=== PATIENT | female | born 1970 | race African-American/Black ===

== ENCOUNTER 2017-08-19 21:25 | Inpatient (IN) | payer OTHER ==
[2017-08-19] MEDS ORDERED: IPRATROPIUM/ALBUTEROL 0.5-2.5 MG/3 ML AMPUL NEB ONE (21:46)
[2017-08-19 22:12] LABS: HEMATOCRIT 35.7 % (36.0-47.0); HEMOGLOBIN 11.2 g/dL (12.0-15.5); MEAN CORPUSCULAR HEMOGLOBIN 23.6 pg (27.0-33.4); MEAN CORPUSCULAR HGB CONC 31.2 g/dL (32.0-36.0); MEAN CORPUSCULAR VOLUME 76 fl (80-97); PLATELET COUNT 542 10^3/uL (150-450); RED BLOOD COUNT 4.72 10^6/uL (3.72-5.28); RED CELL DISTRIBUTION WIDTH 15.7 % (11.5-14.0); WHITE BLOOD COUNT 14.8 10^3/uL (4.0-10.5)
[2017-08-19] MEDS ORDERED: ALBUTEROL SULFATE 0.083% NEB 2.5 MG/3 ML AMPUL NEB ONE (22:15)
[2017-08-19] MEDS ORDERED: METHYLPREDNISOLONE INJ 125 MG/2 ML SDV IV ONE (22:16)
[2017-08-19] MEDS ORDERED: MAGNESIUM SULFATE/D5W 1 GM/100 ML RTUPB IV ONE (22:16)
--- NOTE | 2017-08-19 22:17 | ER Document Report ---
ED General - General Stated Complaint: RESPIRATORY DISTRESS Time Seen by Provider: 08/19/17 21:46 Mode of Arrival: Medic Information source: Patient, Relative - [facility] Patient complains to provider of: Shortness of breath Onset: Other - Is [place] Onset/Duration: Waxing and waning Quality of pain: No pain Associated symptoms: Productive cough, Hurts to breath, Shortness of breath Exacerbated by: Coughing Relieved by: Denies Similar symptoms previously: Yes Recently seen / treated by doctor: Yes - Was recently on a Z-Eyad. Notes: A 47-year-old -[place] female who presents emergency department via ambulance for shortness of breath. Patient took at least 8 duo nebs at home without improvement. She states she has a history of asthma she has not been hospitalized in years for this. She states she has been ill since July with a cough wheezing and shortness of breath. She states that she has been to the emergency department 3 times. She was last treated with a Z-Eyad approximately 1 week ago. She states that she took all but 1 or 2 pills. Patient is here visiting from [place]. She does not smoke. She has not been on prednisone in at least a year. Past Medical History - General Information source: Patient - Social History Smoking Status: Never Smoker Cigarette use (# per day): No Chew tobacco use (# tins/day): No Smoking Education Provided: No Frequency of alcohol use: Social Drug Abuse: None Lives with: Family Family History: Reviewed & Not Pertinent Patient has suicidal ideation: No Patient has homicidal ideation: No Pulmonary Medical History: Reports: Hx Asthma, Hx Bronchitis EENT Medical History: Reports: None Neurological Medical History: Reports: None Endocrine Medical History: Reports: None Renal/ Medical History: Reports: None Malignancy Medical History: Reports: None GI Medical History: Reports: None Musculoskeltal Medical History: Reports None Skin Medical History: Reports None Psychiatric Medical History: Reports: None Traumatic Medical History: Reports: None Infectious Medical History: Reports: None Surgical Hx: Negative Review of Systems - Review of Systems EENT: No symptoms reported Cardiovascular: No symptoms reported Respiratory: Cough, Hurts to breathe, Short of breath, Wheezing Gastrointestinal: No symptoms reported Genitourinary: No symptoms reported Female Genitourinary: No symptoms reported Musculoskeletal: No symptoms reported Skin: No symptoms reported Hematologic/Lymphatic: No symptoms reported Neurological/Psychological: No symptoms reported Physical Exam - Vital signs Vitals: Resp Pulse Ox 37 H 100 08/19/17 21:25 08/19/17 21:25 96% Cpap (50% O2). HR111 BP 140/90 Interpretation: Normal - Notes Notes: PHYSICAL EXAMINATION: GENERAL: Respiratory distress on BiPAP. Cachectic ill-appearing female HEAD: Atraumatic, normocephalic. EYES: Pupils equal round and reactive to light, extraocular movements intact, conjunctiva are normal. ENT: Nares patent, oropharynx clear without exudates. Moist mucous membranes. NECK: Normal range of motion, supple without lymphadenopathy LUNGS: Rhonchi bilaterally. Insert during expiratory wheezing bilaterally HEART: Regular rate and rhythm without murmurs ABDOMEN: Soft, nontender, nondistended abdomen. No guarding, no rebound. No masses appreciated. Female : deferred Musculoskeletal: Normal range of motion, no pitting or edema. No cyanosis. NEUROLOGICAL: Cranial nerves grossly intact. Normal speech, normal gait. Normal sensory, motor exams PSYCH: Normal mood, normal affect. SKIN: Warm, Dry, normal turgor, no rashes or lesions noted. Course - Re-evaluation Re-evalutation: 08/20/17 00:46 She remained stable throughout her stay in the emergency department. She did tolerate the BiPAP. I did discuss the patient with Dr. Roe who admitted her. Did discuss antibiotics and both felt at this point that they would not be needed. It seems that the patient has a pearly asthmatic exacerbation there are no signs of infection at this time. - Vital Signs Vital signs: Temp Pulse Resp BP Pulse Ox 26 H 125/85 99 08/19/17 23:00 08/19/17 21:34 08/19/17 23:00 - Laboratory Result Diagrams: 08/19/17 21:45 08/19/17 21:45 Laboratory results interpreted by me: 08/19/17 08/19/17 21:45 21:45 WBC 14.8 H Hgb 11.2 L Hct 35.7 L MCV 76 L MCH 23.6 L MCHC 31.2 L RDW 15.7 H Plt Count 542 H Eosinophils % (Manual) 13 H Absolute Eos (Manual) 1.9 H Potassium 3.5 L Carbon Dioxide 21 L Glucose 126 H Discharge - Discharge Clinical Impression: Asthma exacerbation, Anemia Condition: Good Disposition: ADMITTED INPATIENT Admitting Provider: Hospitalist - Dr. Roe Unit Admitted: Telemetry
[2017-08-19 22:20] LABS: ALANINE AMINOTRANSFERASE 27 U/L (9-52); ALBUMIN 4.3 g/dL (3.5-5.0); ALKALINE PHOSPHATASE 70 U/L (38-126); ANION GAP 12 (5-19); ASPARTATE AMINO TRANSFERASE 27 U/L (14-36); BILIRUBIN,DIRECT 0.2 mg/dL (0.0-0.4); BILIRUBIN,TOTAL 0.3 mg/dL (0.2-1.3); BLOOD UREA NITROGEN 8 mg/dL (7-20); CALCIUM 9.5 mg/dL (8.4-10.2); CARBON DIOXIDE 21 mmol/L (22-30); CHLORIDE 106 mmol/L (98-107); GLUCOSE 126 mg/dL (75-110); POTASSIUM 3.5 mmol/L (3.6-5.0); SODIUM 138.5 mmol/L (137-145); TOTAL PROTEIN 7.9 g/dL (6.3-8.2)
[2017-08-19 22:26] LABS: ABSOLUTE MONOCYTES # (MANUAL) 0.6 10^3/uL (0.1-1.4); ABSOLUTE NEUTROPHILS# (MANUAL) 8.1 10^3/uL (1.7-8.2); BASOPHILS % (MANUAL) 1 % (0-2); EOSINOPHILS % (MANUAL) 13 % (0-6); LYMPHOCYTES % (MANUAL) 23 % (13-45); MONOCYTES % (MANUAL) 4 % (3-13); SEGMENTED NEUTROPHILS % (MAN) 55 % (42-78); TOTAL CELLS COUNTED 100
[2017-08-19 22:30] LABS: ANISOCYTOSIS SLIGHT; HYPOCHROMASIA 1+; OVALOCYTES SLIGHT; PLATELET COMMENT INCREASED; PLATELET LARGE PRESENT; POIKILOCYTOSIS SLIGHT; POLYCHROMASIA SLIGHT; SCHISTOCYTES SLIGHT
--- NOTE | 2017-08-19 22:33 | RADIOLOGY REPORT (SQ) ---
EXAM DESCRIPTION: CHEST SINGLE VIEW COMPLETED DATE/TIME: 08/19/2017 10:25 pm REASON FOR STUDY: sob COMPARISON: None. EXAM PARAMETERS: NUMBER OF VIEWS: One view. TECHNIQUE: Single frontal radiographic view of the chest acquired. RADIATION DOSE: NA LIMITATIONS: None. FINDINGS: LUNGS AND PLEURA: No opacities, masses or pneumothorax. No pleural effusion. MEDIASTINUM AND HILAR STRUCTURES: No masses. Contour normal. HEART AND VASCULAR STRUCTURES: Heart normal in size. Normal vasculature. BONES: No acute findings. HARDWARE: None in the chest. OTHER: No other significant finding. IMPRESSION: NO ACUTE RADIOGRAPHIC FINDING IN THE CHEST. TECHNICAL DOCUMENTATION: JOB ID: [id number] [employer]- All Rights Reserved
[2017-08-19 23:44] LABS: A TYPE INFLUENZA AG NEGATIVE (NEGATIVE); B INFLUENZA AG NEGATIVE (NEGATIVE)
[2017-08-19] MEDS ORDERED: LEVALBUTEROL HCL NEB 1.25 MG/3 ML AMPUL NEB ONE (23:59)
[2017-08-20] MEDS ORDERED: ACETAMINOPHEN 325 MG TABLET PO PRN
[2017-08-20] MEDS ORDERED: LEVALBUTEROL HCL NEB 1.25 MG/3 ML AMPUL NEB ONE (00:07)
[2017-08-20] MEDS: POTASSI CL 20 MEQ/50 ML RIDER 20 MEQ/50 ML RTUPB IV SCH ×2 (01:08→03:29)
[2017-08-20] MEDS: NORMAL SALINE 1000 ML 1,000 ML IV PRN ×2 (01:10→03:41)
--- NOTE | 2017-08-20 01:26 | PDOC H&P ---
History of Present Illness Admission Date/PCP: 08/19/2017 No Pcp History of Present Illness: LAINE MIGUEL is a 47 year old female with past medical history of asthma who presents to the emergency department with shortness of breath. Patient reports that she has been short of breath with coughing and wheezing since she has been using her nebulized machine and her inhaler. She reports she was given a Z-Eyad and completed all but 1 tablet of this. She reports a cough that is productive of yellow sputum and night sweats and occasionally chills but no overt fevers. Patient reports that she took 8 home treatments prior to presentation to the emergency department tonight. Patient is found to be in acute hypoxemic respiratory failure with tachypnea and increased work of breathing currently requiring BiPAP. Patient's medications are currently undergoing reconciliation. Current list is automatically generated by [employer] and does not reflect an accurate description of her medications. Due to the urgent/emergent nature of her condition, she is admitted without a full list. Past Medical History Pulmonary Medical History: Reports: Asthma, Bronchitis EENT Medical History: Reports: None Neurological Medical History: Reports: None Endocrine Medical History: Reports: None Renal/ Medical History: Reports: None Malignancy Medical History: Reports: None GI Medical History: Reports: None Musculoskeltal Medical History: Reports: None Skin Medical History: Reports: None Psychiatric Medical History: Reports: None Traumatic Medical History: Reports: None Hematology: Reports: Anemia Infectious Medical History: Reports: None Past Surgical History Past Surgical History: Reports: Tubal Ligation Social History Lives with: Family Smoking Status: Never Smoker Frequency of Alcohol Use: Rare Hx Recreational Drug Use: No Hx Prescription Drug Abuse: No - Advance Directive Resuscitation Status: Full Code Surrogate healthcare decision maker:: Randy Miguel Junior, father Family History Family History: Hypertension Parental Family History Reviewed: Yes Children Family History Reviewed: Yes Sibling(s) Family History Reviewed.: Yes Review of Systems Constitutional: PRESENT: night sweats. ABSENT: chills, fever(s), headache(s), weight gain, weight loss Eyes: ABSENT: visual disturbances Ears: ABSENT: hearing changes Cardiovascular: ABSENT: chest pain, dyspnea on exertion, edema, orthropnea, palpitations Respiratory: PRESENT: cough, dyspnea, sputum. ABSENT: hemoptysis Gastrointestinal: ABSENT: abdominal pain, constipation, diarrhea, hematemesis, hematochezia, melena, nausea, vomiting Genitourinary: ABSENT: dysuria, hematuria Musculoskeletal: ABSENT: joint swelling Integumentary: ABSENT: rash, wounds Neurological: ABSENT: abnormal gait, abnormal speech, confusion, dizziness, focal weakness, syncope Psychiatric: ABSENT: anxiety, depression, homidical ideation, suicidal ideation Endocrine: ABSENT: cold intolerance, heat intolerance, polydipsia, polyuria Hematologic/Lymphatic: ABSENT: easy bleeding, easy bruising Physical Exam Vital Signs: Temp Pulse Resp BP Pulse Ox 26 H 125/85 99 08/19/17 23:00 08/19/17 21:34 08/19/17 23:00 General appearance: PRESENT: mild distress, thin, well-developed, well-nourished Head exam: PRESENT: atraumatic, normocephalic Eye exam: PRESENT: conjunctiva pink, EOMI, PERRLA. ABSENT: scleral icterus Ear exam: PRESENT: normal external ear exam Mouth exam: PRESENT: dry mucosa, tongue midline Neck exam: ABSENT: JVD, lymphadenopathy, thyromegaly, tracheal deviation Respiratory exam: PRESENT: accessory muscle use, retraction - Mild supraclavicular, symmetrical, tachypnea, wheezes. ABSENT: rales, rhonchi, unlabored Cardiovascular exam: PRESENT: RRR, +S1, +S2, tachycardia. ABSENT: diastolic murmur, gallop, rubs, systolic murmur Pulses: PRESENT: normal dorsalis pedis pul Vascular exam: PRESENT: normal capillary refill GI/Abdominal exam: PRESENT: normal bowel sounds, soft. ABSENT: distended, guarding, mass, organolmegaly, rebound, tenderness Rectal exam: PRESENT: deferred Extremities exam: PRESENT: full ROM. ABSENT: calf tenderness, clubbing, pedal edema Neurological exam: PRESENT: alert, awake, oriented to person, oriented to place , oriented to time, oriented to situation, CN II-XII grossly intact. ABSENT: motor sensory deficit Psychiatric exam: PRESENT: appropriate affect, normal mood. ABSENT: homicidal ideation, suicidal ideation Skin exam: PRESENT: dry, intact, warm. ABSENT: cyanosis, rash Results Laboratory Results: 08/19/17 21:45 08/19/17 21:45 08/19/17 08/19/17 21:45 21:45 WBC 14.8 H RBC 4.72 Hgb 11.2 L Hct 35.7 L MCV 76 L MCH 23.6 L MCHC 31.2 L RDW 15.7 H Plt Count 542 H Seg Neutrophils % Not Reportable Lymphocytes % Not Reportable Monocytes % Not Reportable Eosinophils % Not Reportable Basophils % Not Reportable Absolute Neutrophils Not Reportable Absolute Lymphocytes Not Reportable Absolute Monocytes Not Reportable Absolute Eosinophils Not Reportable Absolute Basophils Not Reportable Sodium 138.5 Potassium 3.5 L Chloride 106 Carbon Dioxide 21 L Anion Gap 12 BUN 8 Creatinine 0.77 Est GFR ( Amer) > 60 Est GFR (Non-Af Amer) > 60 Glucose 126 H Calcium 9.5 Total Bilirubin 0.3 AST 27 ALT 27 Alkaline Phosphatase 70 Total Protein 7.9 Albumin 4.3 08/19/17 21:45 Troponin I < 0.012 Impressions: Chest X-Ray 08/19/17 22:14 IMPRESSION: NO ACUTE RADIOGRAPHIC FINDING IN THE CHEST. Assessment & Plan - Diagnosis (1) Asthma exacerbation Qualifiers: Asthma severity: moderate Asthma persistence: persistent Qualified Code(s ): J45.41 - Moderate persistent asthma with (acute) exacerbation Is this a current diagnosis for this admission?: Yes Plan: Patient with asthma exacerbation. Continue BiPAP. Obtain ABG. Monitor on telemetry for arrhythmia. Place patient on scheduled nebulized treatments and re-evaluate for improvement. PRN Xopenex Place patient on IV Solu-Medrol Obtain sputum culture as she does report some purulent sputum. Add in for this will initiate patient on doxycycline. Chest x-ray does not reveal any overt consolidation. (2) Acute hypoxemic respiratory failure Is this a current diagnosis for this admission?: Yes Plan: Continue oxygen and BiPAP as needed (3) Hypokalemia Is this a current diagnosis for this admission?: Yes Plan: Monitor on telemetry with concern for arrhythmia. Replete and recheck (4) Anemia Qualifiers: Anemia type: unspecified type Qualified Code(s): D64.9 - Anemia, unspecified Is this a current diagnosis for this admission?: Yes Plan: Patient reports chronic anemia. Will monitor and transfuse if patient drops below 8 - Time Time Spent: 30 to 50 Minutes Medications reviewed and adjusted accordingly: Yes Anticipated discharge: Home Within: Other - Upon improvement of symptomatology - Inpatient Certification Based on my medical assessment, after consideration of the patient's comorbidities, presenting symptoms, or acuity I expect that the services needed warrant INPATIENT care.: Yes I certify that my determination is in accordance with my understanding of Medicare's requirements for reasonable and necessary INPATIENT services [42 CFR 412.3e].: Yes Medical Necessity: Need For IV Fluids, Need for Nebulizer Therapy and Monitoring of Response Post Hospital Care: D/C [employer] Director Documentation
[2017-08-20] MEDS ORDERED: DOXYCYCLINE HYCLATE 100 MG in DEXTROSE 5%-WATER 250 ML IV ONE ×2 (01:30→03:30)
[2017-08-20 01:36] LABS: ARTERIAL BLOOD BASE EXCESS -1.6 mmol/L; ARTERIAL BLOOD H2CO3 0.99 mmol/L (1.05-1.35); ARTERIAL BLOOD HCO3 21.9 mmol/L (20-26); ARTERIAL BLOOD PCO2 32.9 mmHg (35-45); ARTERIAL BLOOD PH 7.44 (7.35-7.45); ARTERIAL BLOOD PO2 87.5 mmHg (80-100); ARTERIAL BLOOD TOTAL CO2 22.9 mmol/L (21-25)
[2017-08-20 01:37] LABS: ARTERIAL BLOOD FIO2 50%
[2017-08-20] MEDS: IPRATROPIUM/ALBUTEROL 0.5-2.5 MG/3 ML AMPUL NEB SCH ×5 (02:04→22:14)
[2017-08-20] MEDS ORDERED: METHYLPREDNISOLONE INJ 125 MG/2 ML SDV IV SCH ×2 (03:00→09:03)
[2017-08-20] MEDS ORDERED: DOXYCYCLINE HYCLATE INJ 100 MG VIAL ONE (03:29)
[2017-08-20] MEDS ORDERED: LEVALBUTEROL HCL NEB 1.25 MG/3 ML AMPUL NEB PRN ×2 (08:00)
[2017-08-20] MEDS: FAMOTIDINE 20 MG TABLET PO SCH ×2 (09:09→22:11)
--- NOTE | 2017-08-20 09:09 | Progress Note ---
Provider Note Provider Note: Patient seen, examined, chart reviewed. Will order BMP and mag check today to see if patient needs further potassium replacement. Will check CT of chest due to chronicity of presenting illness.
[2017-08-20] MEDS: GUAIFENESIN 600 MG TABLET.SA PO SCH ×2 (09:10→22:11)
[2017-08-20] MEDS: ENOXAPARIN SODIUM INJ 30 MG/0.3 ML DISP.SYRIN SUBCUT SCH (09:13)
[2017-08-20] MEDS ORDERED: DOXYCYCLINE HYCLATE 100 MG in DEXTROSE 5%-WATER 250 ML IV SCH (10:00)
[2017-08-20] MEDS ORDERED: METHYLPREDNISOLONE INJ 40 MG/1 ML SDV IV ONE (10:00)
[2017-08-20] MEDS: DOXYCYCLINE HYCLATE 100 MG in DEXTROSE 5%-WATER 250 ML IV SCH ×2 (10:18→22:04)
--- NOTE | 2017-08-20 10:18 | RADIOLOGY REPORT (SQ) ---
EXAM DESCRIPTION: CT CHEST WITHOUT COMPLETED DATE/TIME: 08/20/2017 10:04 am REASON FOR STUDY: Respiratory failure COMPARISON: None. TECHNIQUE: CT scan performed of the chest without intravenous contrast. Images reviewed with lung, soft tissue and bone windows. Reconstructed coronal and sagittal MPR images reviewed. All images st ored on PACS. All CT scanners at this facility use dose modulation, iterative reconstruction, and/or weight based d osing when appropriate to reduce radiation dose to as low as reasonably achievable (ALARA). [facility]: Dose Right [facility]: CareDose [facility]: Dose Right [facility]: Teradose 4D [facility]: Smart Grabit RADIATION DOSE: CT Rad equipment meets quality standard of care and radiation dose reduction techniq ues were employed. CTDIvol: 4.8 mGy. DLP: 196 mGy-cm. mGy. LIMITATIONS: No technical limitations. FINDINGS: LUNGS AND PLEURA: No masses, consolidation, pneumothorax. No pleural effusions, calcifica tions. There is mild diffuse bronchial wall thickening with some subtle surrounding tree-in-bud opac ities within the right middle lobe and lingula suggestive of bronchitis/ bronchiolitis. HILAR AND MEDIASTINAL STRUCTURES: No identified masses or abnormal nodes. No obvious aneurysm. HEART AND VASCULAR STRUCTURES: No aneurysm. No pericardial effusion. UPPER ABDOMEN: No significant findings. Limited exam. THYROID AND OTHER SOFT TISSUES: No masses. No adenopathy. BONES: No significant finding. HARDWARE: None in the chest. OTHER: No other significant findings. IMPRESSION: CT FINDINGS SUGGESTIVE OF MILD BRONCHITIS/ BRONCHIOLITIS WHICH COULD BE INFECTIOUS OR IN FLAMMATORY. OTHERWISE UNREMARKABLE NONCONTRAST CT CHEST. TECHNICAL DOCUMENTATION: JOB ID: [id number] Quality ID # [id number]: Final reports with documentation of one or more dose reduction techniques (e.g., Au tomated exposure control, adjustment of the mA and/or kV according to patient size, use of iterative reconstruction technique) 2010 [employer]- All Rights Reserved
[2017-08-20 10:43] LABS: ANION GAP 13 (5-19); BLOOD UREA NITROGEN 8 mg/dL (7-20); CALCIUM 10.4 mg/dL (8.4-10.2); CARBON DIOXIDE 18 mmol/L (22-30); CHLORIDE 109 mmol/L (98-107); GLUCOSE 206 mg/dL (75-110); MAGNESIUM 2.2 mg/dL (1.6-2.3); SODIUM 139.5 mmol/L (137-145)
[2017-08-20 11:04] LABS: POTASSIUM 4.4 mmol/L (3.6-5.0)
[2017-08-20] MEDS ORDERED: INFLUENZA ADLT QUAD (36MOS+) 2017-18 VAC 0.5 ML SYR IM PRN (12:31)
[2017-08-20] MEDS: METHYLPREDNISOLONE INJ 40 MG/1 ML SDV IV SCH ×2 (14:42→22:03)
[2017-08-20] MEDS ORDERED: BENZONATATE 100 MG CAPSULE PO PRN (15:23)
[2017-08-21] MEDS: IPRATROPIUM/ALBUTEROL 0.5-2.5 MG/3 ML AMPUL NEB SCH ×6 (00:09→20:27)
[2017-08-21] MEDS: METHYLPREDNISOLONE INJ 40 MG/1 ML SDV IV SCH ×3 (04:33→17:23)
[2017-08-21] MEDS: NORMAL SALINE 1000 ML 1,000 ML IV PRN ×2 (04:34→22:09)
[2017-08-21 06:02] LABS: ABSOLUTE MONOCYTES (AUTO) 0.4 10^3/uL (0.1-1.4); ABSOLUTE NEUT (AUTO) 14.3 10^3/uL (1.7-8.2); BASOPHILS % (AUTO) 0.2 % (0-2); HEMATOCRIT 31.3 % (36.0-47.0); HEMOGLOBIN 9.7 g/dL (12.0-15.5); LYMPHOCYTES % (AUTO) 6.3 % (13-45); MEAN CORPUSCULAR HEMOGLOBIN 23.3 pg (27.0-33.4); MEAN CORPUSCULAR VOLUME 75 fl (80-97); MONOCYTES % (AUTO) 2.3 % (3-13); PLATELET COUNT 436 10^3/uL (150-450); RED BLOOD COUNT 4.16 10^6/uL (3.72-5.28); SEGMENTED NEUTROPHILS % (AUTO) 91.2 % (42-78); TOTAL CELLS COUNTED % (AUTO) 100 %; WHITE BLOOD COUNT 15.6 10^3/uL (4.0-10.5)
[2017-08-21 06:11] LABS: ANION GAP 11 (5-19); BLOOD UREA NITROGEN 9 mg/dL (7-20); CALCIUM 10.1 mg/dL (8.4-10.2); CARBON DIOXIDE 20 mmol/L (22-30); CHLORIDE 111 mmol/L (98-107); GLUCOSE 157 mg/dL (75-110); POTASSIUM 4.4 mmol/L (3.6-5.0); SODIUM 142.3 mmol/L (137-145)
[2017-08-21] MEDS: GUAIFENESIN 600 MG TABLET.SA PO SCH ×2 (09:13→21:54)
[2017-08-21] MEDS: FAMOTIDINE 20 MG TABLET PO SCH ×2 (09:13→22:07)
[2017-08-21] MEDS: DOXYCYCLINE HYCLATE 100 MG in DEXTROSE 5%-WATER 250 ML IV SCH ×2 (09:14→22:07)
[2017-08-21] MEDS: ENOXAPARIN SODIUM INJ 30 MG/0.3 ML DISP.SYRIN SUBCUT SCH (09:23)
[2017-08-21] MEDS: METHYLPREDNISOLONE INJ 125 MG/2 ML SDV IV SCH (18:02)
[2017-08-21] MEDS: LACTOBACILLUS ACIDOPHILUS 250 MG TAB PO SCH (18:25)
[2017-08-22] MEDS: METHYLPREDNISOLONE INJ 125 MG/2 ML SDV IV SCH ×2 (03:10→09:56)
[2017-08-22] MEDS: IPRATROPIUM/ALBUTEROL 0.5-2.5 MG/3 ML AMPUL NEB SCH ×4 (04:23→12:54)
[2017-08-22 06:56] LABS: FERRITIN 3.74 ng/mL (6.2-137.0)
[2017-08-22 07:23] LABS: IRON(TIBC) < 10.1 ug/dL (37-170)
[2017-08-22 07:27] LABS: FOLATE 4.16 ng/mL (>2.76)
[2017-08-22 08:17] VITALS: BP 110/66
[2017-08-22] MEDS: FAMOTIDINE 20 MG TABLET PO SCH (09:55)
[2017-08-22] MEDS: LACTOBACILLUS ACIDOPHILUS 250 MG TAB PO SCH (09:56)
[2017-08-22] MEDS ORDERED: DOXYCYCLINE HYCLATE 100 MG TABLET PO SCH (10:00)
[2017-08-22] MEDS ORDERED: METHYLPREDNISOLONE INJ 40 MG/1 ML SDV IV SCH (14:00)
--- NOTE | 2017-08-22 16:10 | PDOC DISCHARGE SUMMARY ---
General - Admit/Disc Date/PCP Admission Date/Primary Care Provider: 08/20/17 01:22 PCP is out of town- in [place] Discharge Date: 08/22/17 - Discharge Diagnosis (1) Acute hypoxemic respiratory failure Is this a current diagnosis for this admission?: Yes (2) Anemia Is this a current diagnosis for this admission?: Yes Summary: Iron deficiency- Outpatient work up and follow up. (3) Asthma exacerbation Is this a current diagnosis for this admission?: Yes Summary: Improved with nebs, steroids, course of Doxycycline (4) Hypokalemia Is this a current diagnosis for this admission?: Yes Summary: Repleted - Additional Information Resuscitation Status: Full Code Discharge Diet: As Tolerated Discharge Activity: Activity As Tolerated, Balance Activity w/Rest Prescriptions: Benzonatate [Tessalon Perles 100 mg Capsule] 100 mg PO Q6HP PRN 7 Days #15 capsule PRN Reason: Doxycycline Hyclate [Vibramycin 100 mg Tablet] 100 mg PO Q12 5 Days #11 tablet Omeprazole Magnesium [Prilosec Otc] 20 mg PO DAILY 7 Days #7 tablet. Prednisone [Deltasone 20 mg Tablet] 60 mg PO DAILY #13 tablet Home Medications: Albuterol Sulfate [Proair HFA Inhalation Aerosol 8.5 gm MDI] 2 puff IH Q6HP PRN 08/20/17 Albuterol Sulfate [Ventolin 0.083% Neb 2.5 mg/3 ml Ampul] 1 vial NEB RTQ4HP PRN 08/20/17 Benzonatate [Tessalon Perles 100 mg Capsule] 100 mg PO Q6HP PRN 7 Days #15 capsule 08/22/17 Doxycycline Hyclate [Vibramycin 100 mg Tablet] 100 mg PO Q12 5 Days #11 tablet 08/22/17 Omeprazole Magnesium [Prilosec Otc] 20 mg PO DAILY 7 Days #7 tablet. 08/22/17 Prednisone [Deltasone 20 mg Tablet] 60 mg PO DAILY #13 tablet 08/22/17 History of Present Illness History of Present Illness: LAINE MIGUEL is a 47 year old female with a past medical history of asthma who presented to the hospital with shortness of breath and cough with wheezing for the past 2-3 weeks. She was prescribed azithromycin and had taken it for 2 days prior to presenting to the hospital. She took nebulizer treatments at home with no improvement in her symptoms and therefore presented to the emergency department on August 19. She was found to have acute hypoxic respiratory failure and was placed on BiPAP and started on Doxycycline, high-dose steroids and xypuqu-ege-korzo nebulizers. Steroids were gradually cut back and she gradually improved and oxygen requirements came down. She was able to ambulate around the unit without oxygen this afternoon and her stayed in the 90s. The patient is stable for discharge. Hospital Course Hospital Course: As above. She was given prescriptions for a steroid taper, doxycycline, proton pump inhibitor and antitussives. Physical Exam Vital Signs: Temp Pulse Resp BP Pulse Ox 97.8 F 95 16 110/66 95 08/22/17 14:49 08/22/17 14:49 08/22/17 14:49 08/22/17 07:33 08/22/17 14:49 Intake & Output 08/21/17 08/22/17 08/23/17 06:59 06:59 06:59 Intake Total 2588 3864 Balance 2588 3864 Weight 44.2 kg General appearance: PRESENT: no acute distress Mouth exam: PRESENT: neck supple, tongue midline Neck exam: ABSENT: tracheal deviation Respiratory exam: PRESENT: rhonchi, symmetrical. ABSENT: crackles, wheezes GI/Abdominal exam: PRESENT: normal bowel sounds, soft. ABSENT: tenderness Results Laboratory Results: 08/21/17 05:37 08/21/17 05:37 08/22/17 05:48 Iron < 10.1 L TIBC 368 % Saturation UNABLE TO CALCULATE Ferritin 3.74 L Vitamin B12 700.0 Folate 4.16 Impressions: Chest X-Ray 08/19/17 22:14 IMPRESSION: NO ACUTE RADIOGRAPHIC FINDING IN THE CHEST. Chest CT 08/20/17 00:00 IMPRESSION: CT FINDINGS SUGGESTIVE OF MILD BRONCHITIS/ BRONCHIOLITIS WHICH COULD BE INFECTIOUS OR INFLAMMATORY. OTHERWISE UNREMARKABLE NONCONTRAST CT CHEST. Plan Time Spent: Greater than 30 Minutes
== END 2017-08-22 15:30 | disposition home or self-care (01) | DRG 202 ==
LOC: ER 21:25 → EH 08-20 01:22 → 3S 08-20 12:26
PROVIDERS: ADMIT Family Medicine; ATTEND Family Medicine
PROC: 5A09357 Assistance with Respiratory Ventilation, Less than 24 Consecutive Hours, Continuous Positive Airway Pressure (ICD-10-PCS; principal; 2017-08-20)
DX: J45.41 Moderate persistent asthma with (acute) exacerbation (principal); J96.01 Acute respiratory failure with hypoxia; D50.9 Iron deficiency anemia, unspecified; E87.6 Hypokalemia
CPT/HCPCS: 36415; 71045; 71250; 80048; 80053; 82607; 82728; 82746; 82803; 83540; 83550; 83735; 84466; 84484; 84703; 85025; 86701; 87070; 87205; 87804; 90686; 94640; 94660; 94799; 96365; 96375; 99285; J2920; J2930; J3475; J3480; J3490; J7030; J7060; J7620